=== PATIENT | male | born 1950 | race Caucasian/White ===

== ENCOUNTER 2021-01-25 13:24 | Observation (INO) ==
[2021-01-25] MEDS ORDERED: Ipratropium/Albuterol Neb 3 ML IH ONE (14:02)
[2021-01-25] MEDS ORDERED: Azithromycin 500 MG in 0.9 % Sodium Chloride 250 ML IVPB ONE (14:02)
[2021-01-25] MEDS ORDERED: cefTRIAXone 1,000 MG in Water for inj. (sterile) 10 ML IVP ONE (14:02)
[2021-01-25] MEDS ORDERED: methylPREDNISolone 125 MG/2 ML VIAL IVP ONE (14:58)
[2021-01-25] MEDS ORDERED: Naloxone 0.4 MG/ML INJ IVP PRN (15:00)
[2021-01-25] MEDS ORDERED: Acetaminophen 325 MG TABLET PO PRN ×2 (15:00→15:24)
[2021-01-25] MEDS ORDERED: Melatonin 3 MG TABLET PO PRN (15:00)
[2021-01-25] MEDS ORDERED: Ondansetron 4 MG/2 ML VIAL IVP PRN (15:00)
[2021-01-25] MEDS ORDERED: Nitroglycerin 0.4 MG TAB.SUBL SL PRN (15:24)
[2021-01-25] MEDS ORDERED: methocarbamoL 750 MG TABLET PO PRN (15:24)
[2021-01-25] MEDS ORDERED: Furosemide 20 MG/2 ML VIAL IVP ONE (15:27)
[2021-01-25] MEDS ORDERED: Perflutren Lipid Microsphere 1.3 ML in 0.9 % Sodium Chloride 8.7 ML IVP PRN (15:28)
[2021-01-25] MEDS: Albuterol 2.5 MG/3 ML NEBULIZER IH SCH ×3 (15:51→23:18)
[2021-01-25] MEDS: *HR* LORazepam 1 MG TABLET PO SCH (20:06)
[2021-01-25] MEDS: Gabapentin 400 MG CAPSULE PO SCH (20:06)
[2021-01-25] MEDS ORDERED: traZODone 50 MG TABLET PO SCH (21:00)
[2021-01-26 01:20] LABS: Basophils % 0.3 %; Hematocrit 41.8 % (37.5-50.1); Hemoglobin 13.4 g/dL (12.9-16.9); Immature Granulocytes % 0.4 % (0-4); Lymphocytes # 0.5 K/mcL (0.6-4.6); Lymphocytes % 6.4 %; Mean Corpuscular HGB Conc 32.1 g/dL (31.6-35.5); Mean Corpuscular Hemoglobin 28.6 pg (28.0-33.3); Mean Corpuscular Volume 89.1 fL (83.0-100.0); Mean Platelet Volume 11.1 fL (9.4-12.4); Monocytes # 0.1 K/mcL (0.0-1.3); Monocytes % 1.6 %; Neutrophils # 7.3 K/mcL (1.6-8.9); Platelet Count 220 K/mcL (140-400); Red Blood Count 4.69 M/mcL (4.19-5.50); Red Cell Distribution Width 13.8 % (11.5-14.5); Segmented Neutrophils % 91.3 %
[2021-01-26 01:39] LABS: BUN/Creatinine Ratio 16 (6-26); Blood Urea Nitrogen 17 mg/dL (8-23); Calcium 9.6 mg/dL (8.6-10.3); Carbon Dioxide 24 mEq/L (23-29); Chloride 103 mEq/L (98-107); Glucose 155 mg/dL (70-105); Osmolality,Calculated 289 (280-300); Potassium 3.7 mEq/L (3.5-5.1); Sodium 137 mEq/L (136-145); eGFR For African Americans > 60 (> 60); eGFR For Non-African Americans > 60 (> 60)
[2021-01-26] MEDS: Albuterol 2.5 MG/3 ML NEBULIZER IH SCH ×3 (03:19→11:11)
[2021-01-26] MEDS ORDERED: Levothyroxine 25 MCG TABLET PO SCH (06:30)
[2021-01-26 07:04] VITALS: BP 114/63
[2021-01-26] MEDS: Gabapentin 400 MG CAPSULE PO SCH (08:07)
[2021-01-26] MEDS: *HR* LORazepam 1 MG TABLET PO SCH (08:08)
[2021-01-26] MEDS ORDERED: Venlafaxine XR (24 HR) 150 MG CAP.ER.24H PO SCH (09:00)
[2021-01-26] MEDS ORDERED: Azithromycin 250 MG TABLET PO SCH (09:00)
[2021-01-26] MEDS ORDERED: cefTRIAXone 1,000 MG in Water for inj. (sterile) 10 ML IVP SCH (09:00)
[2021-01-26] MEDS ORDERED: Spironolactone 25 MG TABLET PO SCH (09:00)
[2021-01-26] MEDS ORDERED: Cholecalciferol (D-3) 1,000 UNIT (25MCG) TABLET PO SCH (09:00)
[2021-01-26] MEDS ORDERED: Finasteride 5 MG TABLET PO SCH (09:00)
[2021-01-26] MEDS ORDERED: Loratadine 10 MG TABLET PO SCH (09:00)
[2021-01-26] MEDS ORDERED: predniSONE 20 MG TABLET PO SCH (09:00)
[2021-01-26] MEDS ORDERED: Furosemide 20 MG TABLET PO SCH (09:00)
[2021-01-26] MEDS ORDERED: *HR* Rivaroxaban 10 MG TABLET PO SCH (09:00)
[2021-01-26] MEDS ORDERED: Isosorbide MONOnitrate (24 HR) 30 MG TAB.ER.24H PO SCH (09:00)
== END 2021-01-26 12:17 | disposition home or self-care (01) ==
LOC: 3BNU 13:24 → EMEROOARM 13:24 → SUATTDRO 14:38 → 3BNU 15:24
PROVIDERS: ADMIT Internal Medicine; ATTEND Registered Nurse

== ENCOUNTER 2021-06-19 16:46 | Observation (INO) ==
[2021-06-19] MEDS: DilTIAZem 50 MG/50 ML IV.SOLN IVC SCH ×2 (17:57→22:06)
[2021-06-19 18:06] LABS: Basophils % 0.5 %; Eosinophils # 0.2 K/mcL (0.0-0.6); Eosinophils % 1.8 %; Hematocrit 42.2 % (37.5-50.1); Hemoglobin 13.5 g/dL (12.9-16.9); Immature Granulocytes % 0.4 % (0-4); Lymphocytes # 1.4 K/mcL (0.6-4.6); Lymphocytes % 17.6 %; Mean Corpuscular Volume 90.8 fL (83.0-100.0); Mean Platelet Volume 11.8 fL (9.4-12.4); Monocytes # 0.7 K/mcL (0.0-1.3); Monocytes % 8.4 %; Neutrophils # 5.8 K/mcL (1.6-8.9); Platelet Count 170 K/mcL (140-400); Red Blood Count 4.65 M/mcL (4.19-5.50); Red Cell Distribution Width 14.7 % (11.5-14.5); Segmented Neutrophils % 71.3 %; White Blood Count 8.1 K/mcL (4.3-11.1)
[2021-06-19 18:24] LABS: BUN/Creatinine Ratio 7 (6-26); Blood Urea Nitrogen 8 mg/dL (8-23); Calcium 9.1 mg/dL (8.6-10.3); Carbon Dioxide 26 mEq/L (23-29); Chloride 102 mEq/L (98-107); Glucose 103 mg/dL (70-105); Osmolality,Calculated 285 (280-300); Potassium 3.6 mEq/L (3.5-5.1); Sodium 138 mEq/L (136-145); eGFR For African Americans > 60 (> 60); eGFR For Non-African Americans > 60 (> 60)
[2021-06-19 18:25] LABS: Troponin I < 0.03 ng/mL (< 0.04)
[2021-06-19 19:05] LABS: Bilirubin,Urine Negative (Negative); Blood,Urine Negative (Negative); Clarity,Urine Clear (Clear); Color,Urine Colorless (Yellow); Glucose,Urine (UA) Normal (Normal); Ketones,Urine Negative (Negative); Leukocyte Esterase,Urine Negative (Negative); Nitrite,Urine Negative (Negative); Protein,Urine Negative (Neg-Trace); Specific Gravity,Urine 1.011 (1.010-1.025); Urobilinogen,Urine Normal (Normal)
[2021-06-19] MEDS ORDERED: *HR* Dextrose 50 % in Water (Vial) 50 ML VIAL IVP PRN (20:46)
[2021-06-19] MEDS ORDERED: Dextrose Gel 15 GM/37.5 ML TUBE PO PRN ×2 (20:46)
[2021-06-19] MEDS ORDERED: D5% in Water 1,000 ML IVC PRN (20:46)
[2021-06-19] MEDS ORDERED: Acetaminophen 325 MG TABLET PO PRN (20:48)
[2021-06-19] MEDS ORDERED: Naloxone 0.4 MG/ML INJ IVP PRN (20:48)
[2021-06-19] MEDS ORDERED: Nitroglycerin 0.4 MG TAB.SUBL SL PRN (21:14)
[2021-06-19] MEDS ORDERED: Fluticasone Propionate Nasal 50 MCG/SPRAY BOTTLE NS PRN (21:14)
[2021-06-19] MEDS ORDERED: *HR* LORazepam 1 MG TABLET PO PRN (21:14)
[2021-06-19] MEDS: Insulin LISPRO 300 UNITS/3 ML VIAL SUBQ SCH (21:21)
[2021-06-19] MEDS: Gabapentin 300 MG CAPSULE PO SCH (22:02)
[2021-06-19] MEDS: traZODone 50 MG TABLET PO SCH (22:02)
[2021-06-19] MEDS: *HR* Rivaroxaban 10 MG TABLET PO SCH (22:02)
[2021-06-20 00:50] LABS: Hemoglobin 13.8 g/dL (12.9-16.9); Mean Corpuscular HGB Conc 32.9 g/dL (31.6-35.5); Mean Corpuscular Hemoglobin 29.9 pg (28.0-33.3); Mean Corpuscular Volume 90.9 fL (83.0-100.0); Mean Platelet Volume 11.4 fL (9.4-12.4); Platelet Count 178 K/mcL (140-400); Red Blood Count 4.62 M/mcL (4.19-5.50); Red Cell Distribution Width 14.7 % (11.5-14.5)
[2021-06-20 01:00] LABS: INR 2.5; Prothrombin Time 27.7 Seconds (9.4-12.1)
[2021-06-20 01:03] LABS: Activated Partial Thrombo Time 34.4 Seconds (26.0-36.0)
[2021-06-20 01:10] LABS: BUN/Creatinine Ratio 9 (6-26); Blood Urea Nitrogen 9 mg/dL (8-23); Calcium 9.1 mg/dL (8.6-10.3); Carbon Dioxide 25 mEq/L (23-29); Chloride 102 mEq/L (98-107); Chol/HDL Ratio 2.4 (0-4.9); Cholesterol 81 mg/dL (< 200); Glucose 99 mg/dL (70-105); HDL Cholesterol 34 mg/dL (40-59); LDL Cholesterol,Calculated 27 mg/dL (< 100); Magnesium 1.4 mg/dL (1.6-2.6); Osmolality,Calculated 283 (280-300); Potassium 3.5 mEq/L (3.5-5.1); Sodium 137 mEq/L (136-145); Triglycerides 98 mg/dL (< 150); eGFR For African Americans > 60 (> 60); eGFR For Non-African Americans > 60 (> 60)
[2021-06-20 01:34] LABS: Estimated Average Glucose 128 mg/dl; Hemoglobin A1C 6.1 %
[2021-06-20] MEDS: DilTIAZem 50 MG/50 ML IV.SOLN IVC SCH ×2 (03:24→09:06)
[2021-06-20] MEDS ORDERED: *HR* Metoprolol 5 MG/5 ML VIAL IVP STA (04:12)
[2021-06-20] MEDS: Levothyroxine 25 MCG TABLET PO SCH (05:34)
[2021-06-20] MEDS ORDERED: Acetaminophen 325 MG TABLET PO PRN (07:31)
[2021-06-20] MEDS ORDERED: Spironolactone 25 MG TABLET PO SCH (09:00)
[2021-06-20] MEDS: Venlafaxine XR (24 HR) 150 MG CAP.ER.24H PO SCH (09:02)
[2021-06-20] MEDS: Cholecalciferol (D-3) 1,000 UNIT (25MCG) TABLET PO SCH (09:03)
[2021-06-20] MEDS: Loratadine 10 MG TABLET PO SCH (09:03)
[2021-06-20] MEDS: Isosorbide MONOnitrate (24 HR) 30 MG TAB.ER.24H PO SCH (09:03)
[2021-06-20] MEDS: Furosemide 20 MG TABLET PO SCH (09:03)
[2021-06-20] MEDS: Gabapentin 300 MG CAPSULE PO SCH ×3 (09:03→20:51)
[2021-06-20] MEDS: Finasteride 5 MG TABLET PO SCH (09:04)
[2021-06-20] MEDS: Insulin LISPRO 300 UNITS/3 ML VIAL SUBQ SCH ×7 (09:07→21:01)
[2021-06-20] MEDS: traZODone 50 MG TABLET PO SCH (20:50)
[2021-06-20] MEDS: *HR* Rivaroxaban 10 MG TABLET PO SCH (20:51)
[2021-06-21] MEDS: Levothyroxine 25 MCG TABLET PO SCH (05:20)
[2021-06-21 05:54] LABS: Hematocrit 43.1 % (37.5-50.1); Hemoglobin 13.5 g/dL (12.9-16.9); Mean Corpuscular HGB Conc 31.3 g/dL (31.6-35.5); Mean Corpuscular Hemoglobin 29.3 pg (28.0-33.3); Mean Corpuscular Volume 93.5 fL (83.0-100.0); Mean Platelet Volume 11.1 fL (9.4-12.4); Platelet Count 167 K/mcL (140-400); Red Blood Count 4.61 M/mcL (4.19-5.50)
[2021-06-21 06:11] LABS: BUN/Creatinine Ratio 11 (6-26); Blood Urea Nitrogen 13 mg/dL (8-23); Calcium 9.4 mg/dL (8.6-10.3); Carbon Dioxide 30 mEq/L (23-29); Chloride 101 mEq/L (98-107); Glucose 99 mg/dL (70-105); Osmolality,Calculated 286 (280-300); Potassium 3.7 mEq/L (3.5-5.1); Sodium 138 mEq/L (136-145); eGFR For African Americans > 60 (> 60); eGFR For Non-African Americans 60 (> 60)
[2021-06-21 07:25] VITALS: BP 105/72; PULSE 62; TEMP 98.6; O2SAT 94
[2021-06-21] MEDS: Insulin LISPRO 300 UNITS/3 ML VIAL SUBQ SCH ×2 (08:26)
[2021-06-21] MEDS: Finasteride 5 MG TABLET PO SCH (08:33)
[2021-06-21] MEDS: Furosemide 20 MG TABLET PO SCH (08:33)
[2021-06-21] MEDS: Cholecalciferol (D-3) 1,000 UNIT (25MCG) TABLET PO SCH (08:33)
[2021-06-21] MEDS: Loratadine 10 MG TABLET PO SCH (08:33)
[2021-06-21] MEDS: Gabapentin 300 MG CAPSULE PO SCH (08:33)
[2021-06-21] MEDS: Isosorbide MONOnitrate (24 HR) 30 MG TAB.ER.24H PO SCH (08:34)
[2021-06-21] MEDS: Venlafaxine XR (24 HR) 150 MG CAP.ER.24H PO SCH (08:34)
[2021-06-21] MEDS ORDERED: polyethylene glycoL 3350 17 GM POWD.PACK PO SCH (09:00)
== END 2021-06-21 11:40 | disposition home or self-care (01) ==
LOC: EMEROOARM 16:46 → 2ANU 16:46 → SUATTDRO 19:11 → 2ANU 20:04
PROVIDERS: ADMIT Internal Medicine; ATTEND Family Medicine